=== PATIENT | female | born 1935 | race Caucasian/White ===

== ENCOUNTER → 2019-11-14 17:01 | Outpatient (BNVA) | payer MEDICARE, SELFPAY | PROVIDERS: Visit Provider Emergency Medicine | DX: M54.2 Cervicalgia (principal); M54.9 Dorsalgia, unspecified | CPT/HCPCS: 81003 ==

== ENCOUNTER 2019-11-15 12:43 | Outpatient (CLI) | payer MEDICARE, MEDICAID, SELFPAY ==
--- NOTE | 2019-11-15 12:54 | XR_ITS ---
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 The T3-T4 vertebra shows show mild compression deformity and there is osteopenic changes seen. There is also a compression deformit y at T12. There is increased kyphosis in the thoracic spine. 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
--- NOTE | 2019-11-15 12:54 | XR_ITS ---
WS: [id number] XR cervical spine 3V* [id number] REASON FOR EXAM: neck pain FINDINGS: Hypertrophy of the joints of [place]. Loss of the disc space height C5-C6. The odontoid process was normal. A molar is seen on the right side otherwise the patient is a dentulous. XR/XR cervical spine 3V* [id number] IMPRESSION: Cervical spondylosis Degenerated disc changes C5-C6
--- NOTE | 2019-11-15 12:54 | XR_ITS ---
WS: [id number] XR lumbar spine 2-3V* [id number] REASON FOR EXAM: back pain FINDINGS: Osteopenia changes are noted throughout the lumbar spine thoracic spine. A compression deformity is seen involving the T12 vertebra. The remaining lumbar spine shows normal disc spaces and vertebral body heights. There are scattered air-fluid levels suggesting low-grade ileus findings. A lateral of the thoracic spine shows degenerated ankylosing findings. XR/XR lumbar spine 2-3V* [id number] IMPRESSION: Compression fracture recent T12 Osteopenic changes Ankylosing changes throughout the thoracic spine.
== END 2019-11-15 12:44 | disposition home or self-care (01) ==
PROVIDERS: PCP Family Medicine; Visit Provider Emergency Medicine
DX: M47.892 Other spondylosis, cervical region (principal); M48.54XA Collapsed vertebra, not elsewhere classified, thoracic region, initial encounter for fracture; M43.24 Fusion of spine, thoracic region; M54.2 Cervicalgia; M54.6 Pain in thoracic spine; M54.5 Low back pain
CPT/HCPCS: 72040; 72072; 72100

== ENCOUNTER 2019-11-18 06:00 | Outpatient (RCR) | payer MEDICARE, MEDICAID, SELFPAY | END 2019-11-23 23:59 | disposition home or self-care (01) | LOC: MOT 06:00 | PROVIDERS: PCP Family Medicine; Referring Provider Orthopaedic Surgery; Visit Provider Orthopaedic Surgery | DX: G56.00 Carpal tunnel syndrome, unspecified upper limb (principal); M65.30 Trigger finger, unspecified finger; Z98.890 Other specified postprocedural states | CPT/HCPCS: 97018; 97110; 97140; 97165 ==

== ENCOUNTER 2019-11-24 06:00 | Outpatient (RCR) | payer MEDICARE, SELFPAY | END 2019-12-24 23:59 | disposition home or self-care (01) | LOC: MOT 06:00 | PROVIDERS: PCP Family Medicine; Referring Provider Orthopaedic Surgery; Visit Provider Orthopaedic Surgery | DX: G56.00 Carpal tunnel syndrome, unspecified upper limb (principal); M65.30 Trigger finger, unspecified finger; Z98.890 Other specified postprocedural states | CPT/HCPCS: 97018; 97110; 97140 ==

== ENCOUNTER 2019-11-24 06:00 | Outpatient (RCR) | payer MEDICARE, SELFPAY | END 2019-12-24 23:59 | disposition home or self-care (01) | LOC: MPT 06:00 | PROVIDERS: PCP Family Medicine; Referring Provider Physical Medicine & Rehabilitation; Visit Provider Physical Medicine & Rehabilitation | DX: M54.2 Cervicalgia (principal); M54.9 Dorsalgia, unspecified | CPT/HCPCS: 97110; 97140; 97161 ==